=== PATIENT | female | born 1940 | race Caucasian/White ===

== ENCOUNTER 2023-11-04 17:44 | Emergency (ER) | payer MEDICARE ==
[2023-11-04 19:09] LABS: Bilirubin Negative (Negative); Blood, Urine Trace (Negative); Glucose, Urine (Dipstick) Negative (Negative); Ketone, Urine Negative (Negative); Leukocyte Negative (Negative); Nitrite Negative (Negative); Protein, Urine (Dipstick) 100 mg/dL (Neg-Trace); Urobilinogen 0.2 mg/dL (Less than 2)
[2023-11-04 19:12] LABS: Clarity Hazy (Clear)
[2023-11-04 19:15] LABS: Bacteria/HPF 1+ HPF (None Seen); CAUTI Indications for Culture Acute Hematuria; RBC/HPF 0-3 HPF (0-3); Squamous Epithelial 0-3 HPF (0-3); WBC/HPF 0-3 HPF (0-3)
[2023-11-04 19:16] LABS: Urine Culture Reflex No No
[2023-11-04] MEDS ORDERED: Ondansetron PF 4 MG/2 ML Vial ONE (19:28)
[2023-11-04] MEDS ORDERED: Lactated Ringer's 1,000 ML ONE (19:30)
[2023-11-04 19:55] LABS: Prothrombin Time 13.3 sec (12.0-14.7)
[2023-11-04 19:56] LABS: PTT 27.3 sec (22.9-36.1)
[2023-11-04 20:00] LABS: #Basophils 0.1 thou/uL (0.0-0.2); #Eosinphils 0.2 thou/uL (0.0-0.7); #Lymphocytes 2.3 thou/uL (1.20-3.40); #Monocytes 0.7 thou/uL (0.11-0.59); #Neutrophils 7.6 thou/uL (1.40-6.50); %Basophils 0.8 % (0.0-1.0); %Eosinophils 2.1 % (0.0-10.0); %Lymphocytes 20.9 % (21.0-51.0); %Monocytes 6.4 % (0.0-10.0); %Neutrophils 69.8 % (42.0-75.0); Anisocytosis SLIGHT = 6-15 cells (100X) (0-5/hpf); Hemoglobin 13.3 g/dL (12.0-16.0); Hypochromia SLIGHT = 6-15 cells (100X) (0-5/hpf); MDiff Complete? YES; Mean Corpuscular HGB CONC 31.5 g/dL (32.0-36.0); Mean Corpuscular Hemoglobin 30.6 pg (27.0-31.0); Mean Corpuscular Volume 96.9 fl (78.0-98.0); Mean Platelet Volume 9.1 fL (7.4-10.4); Platelet Adequacy Comment Appears Decreased; Platelet Count 118 10x3/uL (130-400); RBC Distribution Width 12.3 % (11.5-14.5); Red Blood Cell (RBC) Count 4.34 mill/uL (4.20-5.40); White Blood Cell (WBC) Count 10.9 10x3/uL (4.8-10.8)
[2023-11-04 20:04] LABS: ALT (SGPT) 11 U/L (8-55); AST (SGOT) 17 U/L (5-34); Albumin 3.7 g/dL (3.4-4.8); Alkaline Phosphatase 81 U/L (40-110); Anion Gap 16 mmol/L (10-20); BUN (Urea Nitrogen) 33 mg/dL (9.8-20.1); Bilirubin, Total 0.6 mg/dL (0.2-1.2); Calc. Creatinine Clearance 0 mL/min (70-130); Calcium 9.4 mg/dL (7.8-10.44); Carbon Dioxide 26 mmol/L (23-31); Chloride 107 mmol/L (98-107); Estimated GFR 32; Globulin 3.1 g/dL (2.4-3.5); Glucose 92 mg/dL (83-110); Lipase 27 U/L (8-78); Magnesium 1.6 mg/dL (1.6-2.6); Potassium 4.6 mmol/L (3.5-5.1); Protein, Total 6.8 g/dL (5.8-8.1); Sodium 144 mmol/L (136-145)
[2023-11-04 20:12] LABS: Troponin I 0.077 ng/mL (< 0.028)
[2023-11-04] MEDS ORDERED: Labetalol HCl 100 MG/20 ML VIAL ONE (21:26)
[2023-11-04 21:43] LABS: Influenza A by NAA Not Detected (NotDetected); Influenza B by NAA Not Detected (NotDetected); SARS-CoV-2 NAA Rapid Test Not Detected (NotDetected)
== END 2023-11-04 23:24 | disposition short-term general hospital (02) ==
LOC: MADERS 17:44
DX: R79.89 Other specified abnormal findings of blood chemistry (principal); N17.9 Acute kidney failure, unspecified; R53.1 Weakness; I16.0 Hypertensive urgency; F17.210 Nicotine dependence, cigarettes, uncomplicated; F03.90 Unspecified dementia, unspecified severity, without behavioral disturbance, psychotic disturbance, mood disturbance, and anxiety
CPT/HCPCS: 51701; 70450; 80053; 81001; 83605; 83690; 83735; 84443; 84484; 85025; 85610; 85730; 87040; 87086; 93005; 94760; 96361; 96374; 96375; J2405; J7120

== ENCOUNTER 2023-11-10 17:56 | Inpatient (IN) | payer MEDICARE ==
[2023-11-11 00:44] VITALS: BMI 17.2
[2023-11-11] MEDS: Apixaban 2.5 MG TAB PO SCH (08:29)
[2023-11-11] MEDS: Carvedilol 6.25 MG TAB PO SCH (08:29)
[2023-11-11] MEDS: NIFEdipine XL 30 MG ER.TAB PO SCH (08:29)
[2023-11-11] MEDS: Famotidine 20 MG TAB PO SCH (08:29)
[2023-11-12 06:28] LABS: Hematocrit 37.8 % (36.0-47.0); Platelet Count 183 10x3/uL (130-400)
[2023-11-13] MEDS: Amlodipine 5 MG TAB PO SCH (10:02)
[2023-11-13] MEDS: Bisacodyl 5 MG TAB PO SCH (12:22)
[2023-11-14] MEDS: Polyethylene Glycol 3350 17 GM Packet PER TUBE SCH (08:59)
[2023-11-14] MEDS ORDERED: hydrALAZINE 10 MG TAB PO PRN (11:29)
[2023-11-14] MEDS: Melatonin 3 MG TAB PO PRN (21:21)
[2023-11-14] MEDS: ALPRAZolam 0.25 MG TAB PO SCH (21:34)
[2023-11-15 06:29] LABS: Anion Gap 16 mmol/L (10-20); BUN (Urea Nitrogen) 31 mg/dL (9.8-20.1); Calc. Creatinine Clearance 21 mL/min (70-130); Calcium 9.1 mg/dL (7.8-10.44); Carbon Dioxide 20 mmol/L (23-31); Chloride 107 mmol/L (98-107); Estimated GFR 38; Glucose 88 mg/dL (83-110); Potassium 4.6 mmol/L (3.5-5.1); Sodium 138 mmol/L (136-145)
[2023-11-15] MEDS ORDERED: Losartan 25 MG TAB PO SCH (09:00)
[2023-11-15] MEDS: ALPRAZolam 0.25 MG TAB PO PRN (20:38)
[2023-11-16] MEDS: Acetaminophen 325 MG TAB PO PRN (21:10)
[2023-11-19 05:17] LABS: Hematocrit 30.3 % (36.0-47.0); Platelet Count 161 10x3/uL (130-400)
[2023-11-20 11:00] VITALS: BMI 17.5
[2023-11-26 07:02] VITALS: BP 135/62; TEMP 97.6
== END 2023-11-26 13:15 | DRG 948 ==
LOC: MADMS 21:21
PROVIDERS: ADMIT Family Medicine; ATTEND Family Medicine
DX: R53.81 Other malaise (principal); I16.1 Hypertensive emergency; N17.9 Acute kidney failure, unspecified; I24.89 Other forms of acute ischemic heart disease; I48.0 Paroxysmal atrial fibrillation; F03.90 Unspecified dementia, unspecified severity, without behavioral disturbance, psychotic disturbance, mood disturbance, and anxiety; I12.9 Hypertensive chronic kidney disease with stage 1 through stage 4 chronic kidney disease, or unspecified chronic kidney disease; N18.32 Chronic kidney disease, stage 3b
CPT/HCPCS: 36415; 80048; 85014; 85018; 85049